=== PATIENT | male | born 1995 | race Caucasian/White ===

== ENCOUNTER 2016-12-03 11:02 | Emergency (ER) | payer OTHER ==
[2016-12-03 11:08] VITALS: RESP 16
[2016-12-03] MEDS ORDERED: ACETAMINOPHEN 500 MG TAB PO ONE (11:22)
[2016-12-03] MEDS ORDERED: ACETAMINOPHEN 500 MG TAB ONE (11:22)
--- NOTE | 2016-12-03 11:35 | EDPHY ---
H & P Stated Complaint: cough/fever/body aches Time Seen by Provider: 12/03/16 11:09 HPI/ROS: CHIEF COMPLAINT: Fever, myalgia, arthralgia, x2 days HISTORY OF PRESENT ILLNESS: 21-year-old immunocompetent male, daily smoker, complaining of flu-like symptoms, namely, fever, chills, myalgia, arthralgia, nonproductive cough for the past 2 days. Consumed 800 mg ibuprofen shortly prior to arrival. Denies: International travel in the past 30 days, chest pain , dyspnea, sore throat, otalgia, abdominal pain, urinary abnormality, bowel movement abnormality, vomiting. PRIMARY CARE PROVIDER:[facility] REVIEW OF SYSTEMS: A ten point review of systems was performed and is negative with the exception of the items mentioned in the HPI PAST MEDICAL & SURGICAL HISTORY: No pertinent medical or surgical history SOCIAL HISTORY: Daily smoker PHYSICAL EXAM (Prior to examination, patient consented to physical exam, hands were washed and my usual and customary physical exam procedures followed) 1) GENERAL: Well-developed, well-nourished, alert and oriented. Appears to be in no acute distress. Appears nontoxic 2) HEAD: Normocephalic, atraumatic 3) HEENT: Pupils equal, round, reactive to light bilaterally. Sclera anicteric. Nasopharynx, oropharynx, clear, no lesions. No Trismus no drooling no tonsillar enlargement or tonsillar exudate Ears bilaterally with normal tympanic membranes. 4) NECK: Full range of motion, no meningeal signs. no adenopathy 5) LUNGS: Clear auscultation bilaterally, no wheezes, no rhonchi, no retractions. 6) HEART: Regular rate and rhythm, no murmur, no heave, no gallop. 7) ABDOMEN: No guarding, no rebound, no focal tenderness, negative McBurney's, negative Bee's, negative Rovsing's, negative peritoneal sign, 8) MUSCULOSKELETAL: No peripheral edema or discoloration. 9) BACK: No CVA tenderness. 10) SKIN: No rash, no petechiae. 11) Psychiatric: Patient is oriented X 3, there is no agitation. DIFFERENTIAL DIAGNOSIS: [in no particular include but limited to meningitis, pneumonia, bronchitis, influenza - Personal History Current Tetanus/Diphtheria Vaccine: Yes - Medical/Surgical History Hx Asthma: No Hx Chronic Respiratory Disease: No Hx Diabetes: No Hx Cardiac Disease: No Hx Renal Disease: No Hx Cirrhosis: No Hx Alcoholism: No Hx HIV/AIDS: No Hx Splenectomy or Spleen Trauma: No Other PMH: denies - Social History Smoking Status: Current every day smoker Constitutional: Initial Vital Signs Temperature (C) 38 C 12/03/16 11:04 Heart Rate 96 12/03/16 11:04 Respiratory Rate 16 12/03/16 11:04 Blood Pressure 125/65 H 12/03/16 11:04 O2 Sat (%) 92 12/03/16 11:04 O2 Delivery Mode Room Air Allergies/Adverse Reactions: No Known Allergies Allergy (Verified 12/03/16 11:03) Home Medications: Medication Instructions Recorded Albuterol [Proventil Inhaler HFA 1 - 2 puffs IH Q4PRN PRN #1 mdi 12/03/16 (*)] Benzonatate [Tessalon Pearles (RX)] 200 mg PO TID PRN #15 cap 12/03/16 Oseltamivir Phosphate [Tamiflu] 75 mg PO BIDMEAL 5 Days 12/03/16 Medical Decision Making ED Course/Re-evaluation: This patient does not appear septic. No meningismus. Doubt meningitis. Patient has positive influenza B. He will be started on Tamiflu. I do not think that chest x-ray indicated. Usual and customary influenza precautions instructions provided. - Data Points Laboratory Results: 12/03/16 11:20 Influenza A,B Rapid POSITIVE FOR FLU B H (NEGATIVE) Medications Given: Discontinued Medications Acetaminophen (Tylenol) 1,000 mg PO EDNOW ONE Stop: 12/03/16 11:23 Last Admin: 12/03/16 11:27 Dose: 1,000 mg Departure - Departure Disposition: Home, Routine, Self-Care Clinical Impression: Influenza B Condition: Good Instructions: Influenza (ED) Additional Instructions: Return to the emergency department immediately for change in breathing habits, change in voice, change in swallowing habits, change in mental status, or any other symptoms that concern you. Referrals: [facility] [Clinic] - 12/05/16 Prescriptions: Albuterol [Proventil Inhaler HFA (*)] 1 - 2 puffs IH Q4PRN PRN #1 mdi PRN Reason: Cough, Moderate Benzonatate [Tessalon Pearles (RX)] 200 mg PO TID PRN #15 cap PRN Reason: Cough, Moderate Oseltamivir Phosphate [Tamiflu] 75 mg PO BIDMEAL 5 Days
[2016-12-03 12:13] VITALS: BP 122/66; PULSE 97; TEMP 99.5; O2SAT 97
== END 2016-12-03 12:13 | disposition home or self-care (01) ==
DX: J10.1 Influenza due to other identified influenza virus with other respiratory manifestations (principal); F17.200 Nicotine dependence, unspecified, uncomplicated